=== PATIENT | male | born 1980 | race Caucasian/White ===

== ENCOUNTER 2019-10-19 13:51 | Emergency (ER) | payer OTHER ==
[~2019-10-19] VITALS: Ht 177.8 cm; Wt 117.9 kg
[2019-10-19] MEDS ORDERED: Norco 5-325 Ta1 EACH PO (15:26)
== END 2019-10-19 15:43 | disposition home or self-care (01) ==
LOC: ER 13:51
DX: S20.212A Contusion of left front wall of thorax, initial encounter (principal); F17.200 Nicotine dependence, unspecified, uncomplicated; M25.561 Pain in right knee; V89.2XXA Person injured in unspecified motor-vehicle accident, traffic, initial encounter
CPT/HCPCS: 71046; 73030; 99283-25; A9270-GY

== ENCOUNTER 2023-08-10 10:42 | Inpatient (IN) | payer OTHER ==
[~2023-08-10] VITALS: Ht 177.8 cm; Wt 113.3 kg
[~2023-08-10 10:42] MED LIST: Norco 5-325 Ta1 EACH PO
[2023-08-10 11:51] LABS: BASOPHILS ABSOLUTE AUTO 0.03 K/mm3 (0.00-0.23); BASOPHILS PERCENT AUTO 0 % (0-2); EOSINOPHILS ABSOLUTE AUTO 0.06 K/mm3 (0.00-0.68); EOSINOPHILS PERCENT AUTO 1 % (0-6); Hematocrit 41.5 % (37.0-53.0); Hemoglobin 14.8 g/dL (13.5-17.5); IMMATURE GRAN ABSOLUTE AUTO 0.11 K/mm3 (0.00-0.10); IMMATURE GRAN PERCENT AUTO 1 % (0-1); LYMPHOCYTES ABSOLUTE AUTO 2.39 K/mm3 (0.84-5.20); LYMPHOCYTES PERCENT AUTO 27 % (21-46); MONOCYTES ABSOLUTE AUTO 0.56 K/mm3 (0.16-1.47); MONOCYTES PERCENT AUTO 6 % (4-13); Mean Corpuscular HGB 31.9 pg (26.0-34.0); Mean Corpuscular HGB Conc 35.7 g/dL (31.5-36.5); Mean Corpuscular Volume 89 fL (80-100); NEUTROPHILS ABSOLUTE AUTO 5.84 K/mm3 (1.96-9.15); NEUTROPHILS PERCENT AUTO 65 % (41-73); Platelet Count 255 K/mm3 (150-400); RDW Coefficient Variation 12.2 % (11.7-14.2); RDW Standard Deviation 39.8 fL (35.1-46.3); Red Blood Cell Count 4.64 M/mm3 (4.30-5.90); White Blood Cell Count 8.99 K/mm3 (4.00-11.30)
[2023-08-10] MEDS ORDERED: ATOMOXETINE HCL40 M3 PO (12:00)
[2023-08-10] MEDS ORDERED: LISI20 PO (12:00)
[2023-08-10 14:23] LABS: Anti-Xa UFH, PHA Monitoring <0.10 IU/mL; International Normalized Ratio 0.93; Prothrombin Time Results 9.8 Sec (9.7-11.5)
[2023-08-10] MEDS ORDERED: CETI5 (18:31)
[2023-08-10] MEDS ORDERED: PROBIOTIC1 EA14 PO (18:32)
[2023-08-10 18:34] VITALS: BP 156/88
--- NOTE | 2023-08-10 18:37 | NUR ---
ADMIT PT ADMITTED TO PCU3. PT REPORTS BACK PAIN RADIATING TO CHEST WITH A PAIN LEVEL OF 4/10. DENIES N/T AND SOB AT THIS TIME. SATING IN THE 90S ON RA. TELE IN PLACE RUNNING NSR IN THE 80S. PT ORIENTED TO ROOM. CALL LIGHT IN REACH.
[2023-08-10 19:21] VITALS: BP 151/96
[2023-08-10 19:33] VITALS: BP 141/87
[2023-08-10 19:44] VITALS: BP 138/88
--- NOTE | 2023-08-10 21:17 | NUR ---
ASSUMPTION OF CARE THIS RN ASSUMED CARE OF PATIENT AT 1900. REPORT TAKEN FROM NILAM RN AT BEDSIDE. PT TEARFUL WITH MOM IN ROOM AND STATES HE HAS BEEN DEALING WITH SOME STRESSFUL SITUATIONS AT HOME, BUT DECLINED TO GO INTO DETAIL WITH THIS RN. SBP 150'S AT TIME OF SHIFT CHANGE. SR ON TELE. PT REPORTING 6-7/10 CHEST PAIN. SL NITRO X3 GIVEN TO PT, PT REPORTED THAT PAIN CAME DOWN TO 4/10 WITH 3 NITRO BUT HE NOW REPORTS A HEADACHE ALONG WITH THE RADIATING BACK/CHEST PAIN. IV MORPHINE ADMINISTERRED PER EMAR; PT THEN REPORTED THAT CHEST PAIN CAME DOWN TO A 2-3/10 AND FELT LIKE HE "COULD REST". SBP 130'S AFTER MEDICATIONS. ON RA WITH SPO2 >92%. HEP GTT INFUSING PER EMAR. A&O X4. ABLE TO MAKE NEEDS KNOWN. INDEPENDENT WITH ADL'S. BED IN LOWEST POSITION AND CALL LIGHT WITHIN REACH.
[2023-08-10 23:19] VITALS: BP 147/92
[2023-08-11] VITALS (16 sets, daily range): BP systolic 126–183; BP diastolic 81–102
--- NOTE | 2023-08-11 00:45 | NUR ---
PATIENT UPDATE MD MCNEIL NOTIFIED REGARDING CRITICAL TROPONIN. WITH ORDER FOR REPEAT TROPONIN 2 HRS AFTER PREVIOUS; ORDER PLACED. MD MCNEIL TO ROOM TO EVALUATE PATIENT. MD MCNEIL WITH ORDER FOR REPEAT EKG; EKG DONE, THIS RN HAD MD MCNEIL REVIEW PREVIOUS EKG AND NEW EKG; NO ST CHANGES NOTED. NSR NOTED. PT MEDICATED PER EMAR WITH MORPHINE FOR CHEST/BACK PAIN, CONTINUES TO REPORT PAIN CRUSHING AND RADIATING FROM BACK TO CHEST. RELIEF NOTED FROM MORPHINE. PT CURRENTLY SLEEPING. HEP GTT INFUSING PER EMAR. CARDIOLOGY CONSULT PLACED PREVIOUSLY. PLAN FOR ANGIO IN AM. PT NOW NPO SINCE MIDNIGHT. BED IN LOWEST POSITION AND CALL LIGHT WITHIN REACH.
--- NOTE | 2023-08-11 04:45 | NUR ---
SHIFT SUMMARY SEE PREVIOUS NOTES. PT HAS BEEN ABLE TO SLEEP DURING THIS SHIFT. HOWEVER, CONTINUES TO HAVE 3-4/10 CHEST/BACK PAIN PREVIOUS MENTIONED. MEDICATING PER EMAR WITH IV MORPHINE. NO RELIEF FROM NITRO. MD AWARE OF CRITICAL TROPONINS. NPO SINCE MIDNIGHT. HEP GTT INFUSING PER EMAR. CONTINUING TO TREND TROPONINS. OTHERWISE VITALS REMAIN STABLE. NO ST/TELE CHANGES NOTED. REPEAT EKG PREVIOUSLY MENTIONED IN LAST NOTE IS IN CHART. PT VERBALIZES UNDERSTANDING PLAN OF CARE. INDEPENDENT WITH ADL'S, BED IN LOWEST POSITION AND CALL LIGHT WITHIN REACH. THIS RN WILL REPORT TO ONCOMING DAYSHIFT RN.
[2023-08-11 05:07] LABS: BASOPHILS ABSOLUTE AUTO 0.05 K/mm3 (0.00-0.23); BASOPHILS PERCENT AUTO 0 % (0-2); EOSINOPHILS ABSOLUTE AUTO 0.12 K/mm3 (0.00-0.68); EOSINOPHILS PERCENT AUTO 1 % (0-6); Hematocrit 41.5 % (37.0-53.0); Hemoglobin 14.5 g/dL (13.5-17.5); IMMATURE GRAN ABSOLUTE AUTO 0.11 K/mm3 (0.00-0.10); IMMATURE GRAN PERCENT AUTO 1 % (0-1); LYMPHOCYTES ABSOLUTE AUTO 3.59 K/mm3 (0.84-5.20); LYMPHOCYTES PERCENT AUTO 28 % (21-46); MONOCYTES PERCENT AUTO 6 % (4-13); Mean Corpuscular HGB 31.5 pg (26.0-34.0); Mean Corpuscular HGB Conc 34.9 g/dL (31.5-36.5); Mean Corpuscular Volume 90 fL (80-100); Mean Platelet Volume 9.7 fL (9.1-12.4); NEUTROPHILS ABSOLUTE AUTO 8.16 K/mm3 (1.96-9.15); NEUTROPHILS PERCENT AUTO 64 % (41-73); Platelet Count 240 K/mm3 (150-400); RDW Coefficient Variation 12.3 % (11.7-14.2); RDW Standard Deviation 40.6 fL (35.1-46.3); White Blood Cell Count 12.83 K/mm3 (4.00-11.30)
[2023-08-11 05:34] LABS: Albumin, Blood 3.4 g/dL (3.4-5.0); Bilirubin, Total 0.3 mg/dL (0.1-1.0); Bun/Creatinine Ratio 13.6 (12.0-20.0); Calcium, Blood 8.2 mg/dL (8.5-10.1); Creatinine, Blood 0.81 mg/dL (0.60-1.20); Globulin, Blood 3.3 g/dL (2.2-4.0); Potassium, Blood 4.1 mmol/L (3.5-5.5); Total Protein, Blood 6.7 g/dL (6.4-8.2)
--- NOTE | 2023-08-11 09:48 | NUR ---
AM NOTE; PT CURRENTLY TAKEN TO THE BILLING CUSTOMER SERVICE REPRESENTATIVE FOR ANGIO. PT CONTINUE TO HAVE CHEST PAIN 4/10 FORM BACK RADIATING TO THE ARMS AND CHEST. MEDICATED WITH MORPHINE 2MG, MOM AT [facility] BEDSIDE THIS MORNING AWARE OF THE PLAN. VITALS HRR SR 70'S, SBP 140'S, SATS ABOVE 95% ON RA, AFEBRILE. NO OTHER ISSUES ENCOUNTERED ECHO WAS DONE BEFORE PROCEDURE. AWAITNG FOR PT TO COME BACK FROM BILLING CUSTOMER SERVICE REPRESENTATIVE AT THIS TIME, WILL CONTINUE TO MONITOR
--- NOTE | 2023-08-11 10:55 | NUR ---
PT ARRIVED BACK IN THE ROOM AT APPROX 1015A, PT RECEIVED ONE STENT ON MID CIRC, RIGHT RADIAL SITE WITH 11CC OF AIR IN THE TR BAND SMALL HEMATOMA PRESSURE HELD FOR 5 MINS, AREA MAKED WITH MARKER. PT STILL HAVING INCEASE BACK NECK AND SHOULDER PAIN MORPHINE 4MG IV WAS GIVEN FOR A PAIN LEVEL 8/10 PT STATED IT DIDNT HELP WITH THE PAIN STILL AT 7/10. DR VALERO CALLED AND MADE AWARE, TO ORDER SOME MUSCLE RELAXER. PT CURRENTLY GETING ECHO DONE AT THIS TIME, ECHO THIS MORNING WAS NOT COMPLETED PT WAS TAKEN TO THE RISK CONTROL CONSULTANT. FAMILY AT THE BEDSIDE AT THIS TIME. DR ANDERSEN CAME BY TO SEE PT AND DISCUSS PLAN WITH THE FAMILY. NO OTHER ISSUES AT THIS TIME. WILL CONTINUE TO MONITOR
--- NOTE | 2023-08-11 18:53 | NUR ---
PT SUMMARY: SEE AM NOTE; PT POST ANGIO RIGHT RADIAL SITE FULLY RECOVERED, CLEAR DRESSING IN PLACE NO FURTHER HEMATOMA OR BLEEDING NOTED. VITALS HRR SR 70'S, SBP ELEVATED 120-180'S, MOSTLY WHEN PT IS IN PAIN HYDRALAZINE X1 GIVEN. MUSCLE RELAXER, ATARAX, GI COCKTAIL ADN MORPHINE GIVEN FOR BACK PAIN THAT RADIATES TO NECK AND IN BETWEEN SHOULDERS PAIN LEVEL NOW DOWN TO 4-5 FORM 6-8, ICE PACK AND HEATING PACK OFFERED NOTHING SEEMED TO HELP. ZOFRAN X1 GIVEN FOR NAUSEA. PT GETS ANXIOUS COULDNT GET COMFORTABLE IN BED. PT NOW BACK IN BED FAMILY AT THE BEDSIDE, DIET RESUMED PT EATING AND DRINKING WITH NO ISSUES. PT TO POSSIBLY TO DC IN AM IF STABLE. NO OTHER ISSUES ENCOUNTERED, PT CALLING APPROPRIATELY INDEPENDENT IN THE ROOM, WILL REPORT TO ONCOMING SHIFT
[2023-08-12 00:28] VITALS: BP 148/92
[2023-08-12 03:28] VITALS: BP 149/85
--- NOTE | 2023-08-12 04:52 | NUR ---
SHIFT SUMMARY NO ACUTE CHANGES OVERNIGHT. PT DENIED CHEST PAIN THROUGHOUT THIS SHIFT. C/O HEADACHE BUT STATED THAT HE IS ABLE TO SLEEP STILL. MEDICATED PER EMAR. SR ON MONITOR WITH HR 60'S. HTN NOTED; MEDICATED PER EMAR. ON RA WITH SPO2 >92%. RIGHT RADIAL SITE FULLY RECOVERED. SMALL OUTLINED HEMATOMA PROXIMAL TO ANGIO SITE UNCHANGED. PULSES STRONG. DRESSING C/D/I. ARMBOARD IN PLACE. PT VERBALIZES UNDERSTANDING ROM RESTRICTIONS FOR WRIST. INDEPENDENT WITH ADL'S. BED IN LOWEST POSITION AND CALL LIGHT WITHIN REACH. THIS RN WILL REPORT TO ONCOMING DAYSHIFT RN.
[2023-08-12 07:55] VITALS: BP 153/96
[2023-08-12 09:06] LABS: BASOPHILS ABSOLUTE AUTO 0.02 K/mm3 (0.00-0.23); BASOPHILS PERCENT AUTO 0 % (0-2); EOSINOPHILS ABSOLUTE AUTO 0.03 K/mm3 (0.00-0.68); EOSINOPHILS PERCENT AUTO 0 % (0-6); Hemoglobin 15.8 g/dL (13.5-17.5); IMMATURE GRAN ABSOLUTE AUTO 0.07 K/mm3 (0.00-0.10); IMMATURE GRAN PERCENT AUTO 1 % (0-1); LYMPHOCYTES ABSOLUTE AUTO 1.93 K/mm3 (0.84-5.20); LYMPHOCYTES PERCENT AUTO 17 % (21-46); MONOCYTES ABSOLUTE AUTO 0.77 K/mm3 (0.16-1.47); MONOCYTES PERCENT AUTO 7 % (4-13); Mean Corpuscular HGB 31.3 pg (26.0-34.0); Mean Corpuscular HGB Conc 35.1 g/dL (31.5-36.5); Mean Corpuscular Volume 89 fL (80-100); Mean Platelet Volume 9.9 fL (9.1-12.4); NEUTROPHILS ABSOLUTE AUTO 8.37 K/mm3 (1.96-9.15); NEUTROPHILS PERCENT AUTO 75 % (41-73); Platelet Count 288 K/mm3 (150-400); RDW Coefficient Variation 12.3 % (11.7-14.2); RDW Standard Deviation 40.2 fL (35.1-46.3); Red Blood Cell Count 5.05 M/mm3 (4.30-5.90); White Blood Cell Count 11.19 K/mm3 (4.00-11.30)
--- NOTE | 2023-08-12 09:10 | NUR ---
AM NOTE ANALYSIS MGR AT BEDSIDE. PLAN FOR DC TODAY AND F/U OUTPATIENT. VSS. NO CP OR PRESSURE. CALL LIGHT WITHIN REACH.
[2023-08-12 09:32] LABS: Creatinine, Blood 0.67 mg/dL (0.60-1.20)
[2023-08-12] MEDS ORDERED: TICA90TA PO (12:45)
[2023-08-12] MEDS ORDERED: ATOR80 PO (12:45)
[2023-08-12] MEDS ORDERED: ASPI81CH PO (12:45)
[2023-08-12] MEDS ORDERED: METO50 PO (12:45)
[2023-08-12 13:12] VITALS: BP 135/86
--- NOTE | 2023-08-12 13:18 | NUR ---
UPDATE/DISCHARGE PT PROVIDED WITH DISCHARGE INSTRUCTIONS PER MD ORDER. VSS PRIOR TO DISCHARGE. R RADIAL SITE WNL. IV'S REMOVED. PT WALKED TO PRIVATE VEHICLE WITH .
== END 2023-08-12 13:20 | disposition home or self-care (01) | DRG 322 ==
LOC: ER 10:42 → MEDS 10:43 → PCU 10:43 → MEDS 10:43 → ER 13:38 → MEDS 13:38 → ER 15:54 → MEDS 15:54 → PCU 18:27
PROVIDERS: Emergency Medicine; ADMIT Internal Medicine
PROC: 027034Z Dilation of Coronary Artery, One Artery with Drug-eluting Intraluminal Device, Percutaneous Approach (ICD-10-PCS; principal; 2023-08-11)
PROC: 4A023N7 Measurement of Cardiac Sampling and Pressure, Left Heart, Percutaneous Approach (ICD-10-PCS; 2023-08-11)
PROC: B2111ZZ Fluoroscopy of Multiple Coronary Arteries using Low Osmolar Contrast (ICD-10-PCS; 2023-08-11)
DX: I21.4 Non-ST elevation (NSTEMI) myocardial infarction (principal); I25.10 Atherosclerotic heart disease of native coronary artery without angina pectoris; I16.0 Hypertensive urgency; I10 Essential (primary) hypertension; E78.5 Hyperlipidemia, unspecified; F90.9 Attention-deficit hyperactivity disorder, unspecified type; F41.9 Anxiety disorder, unspecified; F32.A Depression, unspecified; E66.9 Obesity, unspecified; Z87.891 Personal history of nicotine dependence; G47.33 Obstructive sleep apnea (adult) (pediatric); F10.90 Alcohol use, unspecified, uncomplicated; Z79.891 Long term (current) use of opiate analgesic; Z68.36 Body mass index [BMI] 36.0-36.9, adult; Z79.899 Other long term (current) drug therapy; Z79.811 Long term (current) use of aromatase inhibitors
CPT/HCPCS: 36415; 71260; 76937; 80048; 80053; 84484; 85025; 85347; 85520; 85610; 85730; 93005; 93010; 93306; 93458; 96365; 96366; 96375; 96376; 99152; 99153; 99285-25; A9270; C1725; C1769; C1874; C1887; C1894; C9600; G0378; J0360; J1644; J2250; J2270; J2405; J3010; J7030; J7050; Q9967

== ENCOUNTER → 2024-01-07 | Outpatient (CLI) | payer OTHER, BC ==
[~2024-01-07] MED LIST changes: +ASPI81CH PO; +ATOMOXETINE HCL40 M3 PO; +ATOR80 PO; +CETI5; +LISI20 PO; +METO50 PO; +PROBIOTIC1 EA14 PO; +TICA90TA PO
== END ==
LOC: LAB 12:24 → LAB SHORT 12:24
DX: R31.9 Hematuria, unspecified (principal)
CPT/HCPCS: 87086

== ENCOUNTER → 2024-06-23 | Outpatient (CLI) | payer BC ==
[~2024-06-23] MED LIST changes: +PLAVIX75 MG PO
[2024-06-30 13:06] LABS: CALCIUM, URINE - PER 24H 244 mg/d (100-250); CALCIUM, URINE - PER VOLUME 7.4 mg/dL; CHLORIDE, URINE - PER 24H 82 mmol/d (140-250); CHLORIDE, URINE - PER VOLUME 25 mmol/L; CITRIC ACID, URINE - PER 24H 320 mg/d (320-1240); CITRIC ACID,URINE - PER VOLUME 97 mg/L; CREATININE, URINE - PER 24H 1584 mg/d (1000-2500); CREATININE, URINE - PER VOLUME 48 mg/dL; HOURS COLLECTED 24 hr; MAGNESIUM, URINE - PER VOLUME 3.7 mg/dL; MAGNESIUM, URINE PER 24H 122 mg/d (12-199); OXALATE, URINE - PER 24H 36 mg/d (16-49); OXALATE, URINE - PER VOLUME 11 mg/L; PH, URINE 6.61 (5.00-7.50); PHOSPHORUS, URINE - PER 24H 759 mg/d (400-1300); PHOSPHORUS, URINE - PER VOLUME 23 mg/dL; POTASSIUM, URINE - PER 24H 66 mmol/d (25-125); POTASSIUM, URINE - PER VOLUME 20 mmol/L; SODIUM, URINE - PER 24H 86 mmol/d (51-286); SODIUM, URINE - PER VOLUME 26 mmol/L; SULFATE, URINE - PER 24H 20 mmol/d (6-30); SULFATE, URINE - PER VOLUME 6 mmol/L; TOTAL VOLUME 3300 mL; URIC ACID, URINE - PER 24H 594 mg/d (250-750); URINE SUPERSATURATION INTERP Normal; URINE SUPERSATURATION, CAOX 3.97; URINE SUPERSATURATION, UA CALC 0.08
== END ==
LOC: LAB 07:00 → LAB SHORT 07:00 → LAB FUT 06-22 17:00
PROVIDERS: Urology
DX: N20.0 Calculus of kidney (principal); R31.0 Gross hematuria
CPT/HCPCS: 81003; 82131; 82140; 82340; 82436; 82507; 82570; 83735; 83935; 83945; 84105; 84133; 84300; 84392; 84560